=== PATIENT | male | born 1965 | race Caucasian/White ===

== ENCOUNTER 2017-04-06 12:34 | Emergency (ER) | payer OTHER ==
[~2017-04-06] VITALS: Ht 185.4 cm; Wt 121.2 kg
[2017-04-06 12:42] VITALS: BP 164/94
[2017-04-06] MEDS ORDERED: PREG25CA PO (13:07)
[2017-04-06] MEDS ORDERED: CARI250T PO (13:08)
[2017-04-06] MEDS ORDERED: HYDR-883 PO (13:08)
[2017-04-06] MEDS ORDERED: KETOROLAC 30 MG/1 ML ONE (13:12)
[2017-04-06] MEDS ORDERED: DIAZEPAM 5 MG TABLET ONE (13:12)
[2017-04-06] MEDS ORDERED: DIAZEPAM 5 MG TABLET PO ONE (13:30)
[2017-04-06] MEDS ORDERED: KETOROLAC 30 MG/1 ML IM ONE (13:30)
== END 2017-04-06 14:10 | disposition home or self-care (01) ==
LOC: ED 14:04
DX: S16.1XXA Strain of muscle, fascia and tendon at neck level, initial encounter (principal); S46.811A Strain of other muscles, fascia and tendons at shoulder and upper arm level, right arm, initial encounter; X58.XXXA Exposure to other specified factors, initial encounter; Y93.89 Activity, other specified; Y99.8 Other external cause status; Y92.89 Other specified places as the place of occurrence of the external cause
CPT/HCPCS: 73030; 96372; 99284; J1885